=== PATIENT | male | born 1935 | race Two or more races ===

== ENCOUNTER → 2022-11-30 | Outpatient (CLI) | payer OTHER ==
[2022-11-30 09:19] LABS: Basophils # (auto) 0 10 ^3/uL (0-0.2); Eosinophils # (auto) 0.3 10 ^3/uL (0-0.8); Hemoglobin 17.8 g/dL (13.5-17.5)
[2022-11-30 09:20] LABS: Basophils % (auto) 0.4 % (0.0-2.0); Eosinophils % (auto) 3.5 % (0.0-7.0); Hematocrit 53.1 % (41.0-53.0); Lymphocytes # (auto) 2.7 10 ^3/uL (0.4-5.4); Lymphocytes % (auto) 30.9 % (10.0-50.0); Mean Corpuscular Hemoglobin 32.7 pg (28.0-32.0); Mean Corpuscular Hgb Conc. 33.4 g/dL (32.0-36.0); Mean Corpuscular Volume 97.8 fL (80.0-100.0); Monocytes # (auto) 0.7 10 ^3/uL (0-1.3); Monocytes % (auto) 8.2 % (0.0-12.0); Nucleated Red Blood Cells % 0.1 %; Red Blood Cells 5.43 10^6/uL (4.5-5.90); Red Cell Distribution Width 13.2 % (11.8-14.3); White Blood Cell 8.8 10^3/uL (4.4-10.8)
[2022-11-30 10:05] LABS: Albumin 3.7 g/dL (3.4-5.0); Potassium 4.6 mmol/L (3.5-5.1)
[2022-11-30 10:11] LABS: BUN/Creatinine Ratio 16.6; Bilirubin, Total 0.6 mg/dL (0.2-1.0); Calcium 8.8 mg/dL (8.5-10.1); Total Protein 7.8 g/dL (6.4-8.2)
== END | disposition home or self-care (01) ==
LOC: LAB 08:59
PROVIDERS: ATTEND Internal Medicine
DX: I12.9 Hypertensive chronic kidney disease with stage 1 through stage 4 chronic kidney disease, or unspecified chronic kidney disease (principal); E11.22 Type 2 diabetes mellitus with diabetic chronic kidney disease; N18.9 Chronic kidney disease, unspecified; E78.5 Hyperlipidemia, unspecified
CPT/HCPCS: 36415; 80053; 80061; 82607; 83036; 83880; 84443; 85025

== ENCOUNTER → 2022-12-06 | Outpatient (CLI) | payer OTHER | END | disposition home or self-care (01) | LOC: XYW 08:35 | PROVIDERS: ATTEND Internal Medicine | DX: I08.2 Rheumatic disorders of both aortic and tricuspid valves (principal); I25.10 Atherosclerotic heart disease of native coronary artery without angina pectoris; R07.9 Chest pain, unspecified; R06.02 Shortness of breath | CPT/HCPCS: 93306 ==

== ENCOUNTER → 2022-12-07 | Outpatient (CLI) | payer OTHER | END | disposition home or self-care (01) | LOC: EDUNIT# 08:00 → XYW 08:14 | PROVIDERS: ATTEND Internal Medicine | DX: I70.203 Unspecified atherosclerosis of native arteries of extremities, bilateral legs (principal) | CPT/HCPCS: 93925 ==

== ENCOUNTER → 2023-02-02 | Outpatient (CLI) | payer OTHER ==
[2023-02-02 13:28] LABS: Urine Bacteria NONE SEEN /hpf (None Seen); Urine Blood TRACE /uL (Negative); Urine Specific Gravity 1.016 (1.001-1.035); Urine WBC 1 /hpf (0 - 3)
[2023-02-02 14:00] LABS: Calcium 8.4 mg/dL (8.5-10.1); Potassium 4.6 mmol/L (3.5-5.1)
[2023-02-02 14:03] LABS: BUN/Creatinine Ratio 15.9 (10.0-20.0)
== END | disposition home or self-care (01) ==
LOC: LAB 12:44
PROVIDERS: ATTEND Internal Medicine
DX: E11.22 Type 2 diabetes mellitus with diabetic chronic kidney disease (principal); N18.30 Chronic kidney disease, stage 3 unspecified
CPT/HCPCS: 36415; 80048; 81001; 82043

== ENCOUNTER → 2023-04-04 | Outpatient (CLI) | payer OTHER, MEDICAID ==
[2023-04-04 09:16] LABS: Potassium 4.5 mmol/L (3.5-5.1)
[2023-04-04 09:23] LABS: BUN/Creatinine Ratio 12.9 (10.0-20.0)
== END | disposition home or self-care (01) ==
LOC: LAB 08:31
PROVIDERS: ATTEND Internal Medicine
DX: E11.9 Type 2 diabetes mellitus without complications (principal)
CPT/HCPCS: 36415; 80048; 83036

== ENCOUNTER 2023-05-29 17:19 | Inpatient (IN) | payer MEDICAID, OTHER ==
[~2023-05-29] VITALS: Ht 149.9 cm; Wt 83.4 kg
[2023-05-29 17:00] VITALS: BP 145/69; PULSE 73; RESP 16; TEMP 97.9; O2SAT 97
[2023-05-29 17:42] VITALS: PULSE 73; RESP 16; O2SAT 97
[2023-05-29] MEDS ORDERED: REMDESIVIR PER PHARMACY 0 ML IV SCH (18:45)
[2023-05-29] MEDS ORDERED: ACETAMINOPHEN 500 MG TAB PO PRN (18:45)
[2023-05-29] MEDS ORDERED: NITROGLYCERIN 0.4 MG SL TAB SL PRN (18:45)
[2023-05-29] MEDS ORDERED: ACETAMINOPHEN 325 MG TAB PO PRN (18:45)
[2023-05-29] MEDS ORDERED: DEXTROSE (50%) 50ML SYRG IV PRN (18:45)
[2023-05-29] MEDS ORDERED: MORPHINE SULFATE INJ 2 MG/ml SYRG IV PRN (18:45)
[2023-05-29 19:50] LABS: Basophils # (auto) 0 10 ^3/uL (0-0.2); Basophils % (auto) 0.2 % (0.0-2.0); Eosinophils # (auto) 0 10 ^3/uL (0-0.8); Neutrophils # (auto) 7.8 10 ^3/uL (1.6-8.6); Nucleated Red Blood Cells % 0.1 %; White Blood Cell 9.3 10^3/uL (4.4-10.8)
[2023-05-29 19:52] LABS: Hematocrit 54.8 % (41.0-53.0); Mean Corpuscular Hemoglobin 32.6 pg (28.0-32.0); Mean Corpuscular Hgb Conc. 32.9 g/dL (32.0-36.0); Mean Corpuscular Volume 99.3 fL (80.0-100.0); Monocytes # (auto) 0.5 10 ^3/uL (0-1.3); Monocytes % (auto) 5.3 % (0.0-12.0); Neutrophils % (auto) 83.5 % (37.0-80.0); Red Blood Cells 5.52 10^6/uL (4.5-5.90); Red Cell Distribution Width 14.1 % (11.8-14.3)
[2023-05-29 19:56] VITALS: BP 143/69; PULSE 73; RESP 16; TEMP 97.9; O2SAT 97
[2023-05-29 20:00] VITALS: PULSE 65
[2023-05-29 20:02] LABS: Albumin 3.3 g/dL (3.4-5.0); Calcium 7.5 mg/dL (8.5-10.1); Magnesium 2.6 mg/dL (1.6-2.6); Potassium 4.8 mmol/L (3.5-5.1)
[2023-05-29 20:05] LABS: BUN/Creatinine Ratio 17.8 (10.0-20.0); Bilirubin, Total 0.5 mg/dL (0.2-1.0); Total Protein 7.9 g/dL (6.4-8.2)
[2023-05-29 20:09] LABS: INR 1.14 (0.9-1.15); Prothrombin Time 11.9 sec (9.3-11.8)
[2023-05-29 20:14] LABS: Thyroid Stimulating Hormone 1.18 uIU/mL (0.358-3.74)
[2023-05-29 22:00] VITALS: BP 161/67; PULSE 78; RESP 19; TEMP 98.4; O2SAT 95
[2023-05-29] MEDS: InsuLIN REG 1unit/0.01ml Soln (100units/ml) SC SCH (22:00)
[2023-05-29] MEDS: BUDESONIDE (INHALATION) 180 MCG IH IN SCH (22:00)
[2023-05-29 22:25] VITALS: O2SAT 95
[2023-05-29] MEDS ORDERED: hydrALAZINE HCL 20 MG/ML VL IV ONE (22:45)
[2023-05-29] MEDS ORDERED: hydrALAZINE HCL 20 MG/ML VL ONE (23:53)
[2023-05-29] MEDS ORDERED: InsuLIN REG 1unit/0.01ml Soln (100units/ml) ONE (23:54)
[2023-05-30] VITALS (11 sets, daily range): BP systolic 130–169; BP diastolic 65–72; PULSE 64–73; RESP 14–22; TEMP 97.4–98; O2SAT 94–99
[2023-05-30] MEDS: ACCU-CHEK COMFORT CURVE STRIP VI SCH ×5 (00:30→22:38)
[2023-05-30] MEDS: SODIUM CHLORIDE 0.9% 1,000 ML IV SCH ×2 (00:35→09:51)
[2023-05-30] MEDS: AZITHROMYCIN 500MG/ 250ML 250 ML IV SCH (01:43)
[2023-05-30] MEDS: BUDESONIDE (INHALATION) 180 MCG IH IN SCH ×2 (06:15→18:41)
[2023-05-30] MEDS: ALBUTEROL SULF HFA 90MCG INH 200DOSE IN PRN ×2 (06:17→18:41)
[2023-05-30] MEDS: InsuLIN REG 1unit/0.01ml Soln (100units/ml) SC SCH ×5 (06:39→22:00)
[2023-05-30 07:13] LABS: Basophils # (auto) 0 10 ^3/uL (0-0.2); Basophils % (auto) 0.1 % (0.0-2.0); Eosinophils # (auto) 0 10 ^3/uL (0-0.8); Hematocrit 52.5 % (41.0-53.0); Hemoglobin 17.5 g/dL (13.5-17.5); Lymphocytes # (auto) 1.4 10 ^3/uL (0.4-5.4); Lymphocytes % (auto) 16.1 % (10.0-50.0); Mean Corpuscular Hgb Conc. 33.3 g/dL (32.0-36.0); Monocytes # (auto) 0.6 10 ^3/uL (0-1.3); Monocytes % (auto) 6.7 % (0.0-12.0); Neutrophils # (auto) 6.6 10 ^3/uL (1.6-8.6); Neutrophils % (auto) 77.1 % (37.0-80.0); Nucleated Red Blood Cells % 0.1 %; Red Cell Distribution Width 13.8 % (11.8-14.3); White Blood Cell 8.6 10^3/uL (4.4-10.8)
[2023-05-30 07:19] LABS: Potassium 4.9 mmol/L (3.5-5.1)
[2023-05-30 07:25] LABS: Albumin 3.2 g/dL (3.4-5.0); BUN/Creatinine Ratio 23.8 (10.0-20.0); Calcium 7.3 mg/dL (8.5-10.1)
[2023-05-30 07:27] LABS: Bilirubin, Total 0.4 mg/dL (0.2-1.0); Total Protein 7.5 g/dL (6.4-8.2)
[2023-05-30] MEDS: DexAMETHasone SOD PHOS 10MG/1ML VIAL INJ IV SCH (09:50)
[2023-05-30] MEDS: ENOXAPARIN SOD 40 MG/0.4 ML SYRINGE SC SCH (09:50)
[2023-05-30] MEDS: CHOLECALCIFEROL (VITD3) 2,000 UNIT CAP/TAB PO SCH (09:50)
[2023-05-30] MEDS: ASCORBIC ACID 1,000 MG TAB PO SCH (09:50)
[2023-05-30] MEDS: ZINC SULFATE 220mg CAP or TAB PO SCH (09:50)
[2023-05-30] MEDS ORDERED: SODIUM CHL 0.9% IV ONE (11:00)
[2023-05-30] MEDS ORDERED: REMDESIVIR IV ONE (11:00)
[2023-05-30 12:08] LABS: COVID19 ANTIGEN SOFIA FIA POSITIVE (NEGATIVE)
[2023-05-30] MEDS ORDERED: cefTRIAXone 1GM/50ML D5W 50 ML IV ONE (13:15)
[2023-05-31] VITALS (8 sets, daily range): BP systolic 132–170; BP diastolic 53–78; PULSE 57–78; RESP 16–20; TEMP 97.8–98.7; O2SAT 93–98
[2023-05-31] MEDS: AZITHROMYCIN 500MG/ 250ML 250 ML IV SCH (00:07)
[2023-05-31] MEDS: SODIUM CHLORIDE 0.9% 1,000 ML IV SCH (04:05)
[2023-05-31] MEDS: InsuLIN REG 1unit/0.01ml Soln (100units/ml) SC SCH ×4 (06:14→22:00)
[2023-05-31] MEDS: ACCU-CHEK COMFORT CURVE STRIP VI SCH ×4 (06:14→21:45)
[2023-05-31] MEDS: CHOLECALCIFEROL (VITD3) 2,000 UNIT CAP/TAB PO SCH (08:59)
[2023-05-31] MEDS: cefTRIAXone 1GM/50ML D5W 50 ML IV SCH (08:59)
[2023-05-31] MEDS: ZINC SULFATE 220mg CAP or TAB PO SCH (08:59)
[2023-05-31] MEDS: ENOXAPARIN SOD 40 MG/0.4 ML SYRINGE SC SCH (08:59)
[2023-05-31] MEDS: DexAMETHasone SOD PHOS 10MG/1ML VIAL INJ IV SCH (09:00)
[2023-05-31] MEDS: ASCORBIC ACID 1,000 MG TAB PO SCH (09:00)
[2023-05-31] MEDS ORDERED: PRED20TA2 PO (11:30)
[2023-05-31] MEDS ORDERED: LEVO750T40 PO (11:30)
[2023-05-31] MEDS: ALBUTEROL SULF HFA 90MCG INH 200DOSE IN PRN ×2 (12:07→22:13)
[2023-05-31] MEDS: BUDESONIDE (INHALATION) 180 MCG IH IN SCH ×2 (12:07→22:13)
[2023-05-31 13:06] LABS: Basophils # (auto) 0 10 ^3/uL (0-0.2); Eosinophils # (auto) 0 10 ^3/uL (0-0.8); Mean Corpuscular Hgb Conc. 32.6 g/dL (32.0-36.0); Monocytes # (auto) 0.8 10 ^3/uL (0-1.3); White Blood Cell 12.3 10^3/uL (4.4-10.8)
[2023-05-31 13:08] LABS: Basophils % (auto) 0.2 % (0.0-2.0); Hematocrit 54.6 % (41.0-53.0); Hemoglobin 17.8 g/dL (13.5-17.5); Lymphocytes % (auto) 15.8 % (10.0-50.0); Mean Corpuscular Hemoglobin 32.2 pg (28.0-32.0); Mean Corpuscular Volume 98.7 fL (80.0-100.0); Monocytes % (auto) 6.7 % (0.0-12.0); Neutrophils # (auto) 9.5 10 ^3/uL (1.6-8.6); Neutrophils % (auto) 77.3 % (37.0-80.0); Nucleated Red Blood Cells % 0.1 %; Red Blood Cells 5.54 10^6/uL (4.5-5.90); Red Cell Distribution Width 13.5 % (11.8-14.3)
[2023-05-31 13:31] LABS: Albumin 3.4 g/dL (3.4-5.0); Calcium 7.7 mg/dL (8.5-10.1); Potassium 4.9 mmol/L (3.5-5.1)
[2023-05-31 13:35] LABS: BUN/Creatinine Ratio 23.5 (10.0-20.0); Bilirubin, Total 0.2 mg/dL (0.2-1.0); Total Protein 7.5 g/dL (6.4-8.2)
[2023-05-31] MEDS ORDERED: REMDESIVIR 100mg 100 MG in SODIUM CHL 0.9% 230 ML IV SCH (15:00)
[2023-05-31 16:56] LABS: Base Excess -5.6 mmol/L (-2.0-2.0)
[2023-05-31] MEDS ORDERED: cloNIDine HCL 0.1 MG TAB PO ONE (21:15)
[2023-06-01] VITALS (13 sets, daily range): BP systolic 1–180; BP diastolic 61–132; PULSE 56–73; RESP 18–20; TEMP 97.3–98.2; O2SAT 93–96
[2023-06-01] MEDS: SODIUM CHLORIDE 0.9% 1,000 ML IV SCH ×2 (00:36→18:59)
[2023-06-01] MEDS: AZITHROMYCIN 500MG/ 250ML 250 ML IV SCH (01:36)
[2023-06-01] MEDS: InsuLIN REG 1unit/0.01ml Soln (100units/ml) SC SCH ×4 (06:14→21:53)
[2023-06-01] MEDS: ACCU-CHEK COMFORT CURVE STRIP VI SCH ×4 (06:14→21:52)
[2023-06-01] MEDS: BUDESONIDE (INHALATION) 180 MCG IH IN SCH ×2 (10:00→19:22)
[2023-06-01] MEDS: ENOXAPARIN SOD 40 MG/0.4 ML SYRINGE SC SCH ×2 (10:00→11:56)
[2023-06-01 10:28] LABS: Potassium 4.1 mmol/L (3.5-5.1)
[2023-06-01 10:34] LABS: Albumin 3.2 g/dL (3.4-5.0); BUN/Creatinine Ratio 22.4 (10.0-20.0); Bilirubin, Total 0.4 mg/dL (0.2-1.0); Calcium 7.5 mg/dL (8.5-10.1)
[2023-06-01] MEDS: CHOLECALCIFEROL (VITD3) 2,000 UNIT CAP/TAB PO SCH (11:55)
[2023-06-01] MEDS: ASCORBIC ACID 1,000 MG TAB PO SCH (11:55)
[2023-06-01] MEDS: cefTRIAXone 1GM/50ML D5W 50 ML IV SCH (11:55)
[2023-06-01] MEDS: DexAMETHasone SOD PHOS 10MG/1ML VIAL INJ IV SCH (11:56)
[2023-06-01] MEDS: ZINC SULFATE 220mg CAP or TAB PO SCH (11:56)
[2023-06-01] MEDS ORDERED: hydrALAZINE HCL 20 MG/ML VL IV ONE (16:45)
[2023-06-01] MEDS ORDERED: hydrALAZINE HCL 10 MG TAB PO ONE ×2 (17:00→18:30)
[2023-06-01] MEDS ORDERED: cloNIDine HCL 0.1 MG TAB PO PRN (19:15)
[2023-06-02] VITALS (7 sets, daily range): BP systolic 140–171; BP diastolic 62–78; PULSE 62–73; RESP 18; TEMP 97.7–97.9; O2SAT 91–95
[2023-06-02] MEDS: AZITHROMYCIN 500MG/ 250ML 250 ML IV SCH (00:46)
[2023-06-02] MEDS: SODIUM CHLORIDE 0.9% 1,000 ML IV SCH (06:05)
[2023-06-02] MEDS: InsuLIN REG 1unit/0.01ml Soln (100units/ml) SC SCH ×2 (06:23→12:31)
[2023-06-02] MEDS: ACCU-CHEK COMFORT CURVE STRIP VI SCH ×2 (06:23→11:30)
[2023-06-02 06:42] LABS: Basophils # (auto) 0 10 ^3/uL (0-0.2); Basophils % (auto) 0.1 % (0.0-2.0); Eosinophils # (auto) 0 10 ^3/uL (0-0.8); Hematocrit 50.5 % (41.0-53.0); Hemoglobin 17.1 g/dL (13.5-17.5); Lymphocytes # (auto) 2.1 10 ^3/uL (0.4-5.4); Lymphocytes % (auto) 21.7 % (10.0-50.0); Mean Corpuscular Hgb Conc. 33.8 g/dL (32.0-36.0); Mean Corpuscular Volume 97.4 fL (80.0-100.0); Monocytes # (auto) 0.8 10 ^3/uL (0-1.3); Monocytes % (auto) 8.9 % (0.0-12.0); Neutrophils # (auto) 6.6 10 ^3/uL (1.6-8.6); Neutrophils % (auto) 69.3 % (37.0-80.0); Nucleated Red Blood Cells % 0.3 %; Red Blood Cells 5.18 10^6/uL (4.5-5.90); Red Cell Distribution Width 13.4 % (11.8-14.3); White Blood Cell 9.5 10^3/uL (4.4-10.8)
[2023-06-02 07:00] LABS: Calcium 7.4 mg/dL (8.5-10.1); Potassium 4.7 mmol/L (3.5-5.1)
[2023-06-02 07:03] LABS: BUN/Creatinine Ratio 20.6 (10.0-20.0); Bilirubin, Total 0.4 mg/dL (0.2-1.0); Total Protein 6.8 g/dL (6.4-8.2)
[2023-06-02] MEDS: cefTRIAXone 1GM/50ML D5W 50 ML IV SCH (08:32)
[2023-06-02] MEDS: DexAMETHasone SOD PHOS 10MG/1ML VIAL INJ IV SCH (08:33)
[2023-06-02] MEDS: CHOLECALCIFEROL (VITD3) 2,000 UNIT CAP/TAB PO SCH (08:33)
[2023-06-02] MEDS: ASCORBIC ACID 1,000 MG TAB PO SCH (08:33)
[2023-06-02] MEDS: ZINC SULFATE 220mg CAP or TAB PO SCH (08:33)
[2023-06-02] MEDS: ENOXAPARIN SOD 40 MG/0.4 ML SYRINGE SC SCH (08:34)
[2023-06-02] MEDS: LISINOPRIL 5 MG TAB PO SCH ×2 (08:34→10:40)
[2023-06-02] MEDS ORDERED: LISI-275 PO (10:17)
[2023-06-02] MEDS: ALBUTEROL SULF HFA 90MCG INH 200DOSE IN PRN (10:54)
[2023-06-02] MEDS: BUDESONIDE (INHALATION) 180 MCG IH IN SCH (10:54)
== END 2023-06-02 13:30 | disposition home or self-care (01) | DRG 177 ==
LOC: TELE-EAST 17:19
PROVIDERS: ADMIT Internal Medicine Pulmonary Disease; ATTEND Internal Medicine
PROC: XW033E5 Introduction of Remdesivir Anti-infective into Peripheral Vein, Percutaneous Approach, New Technology Group 5 (ICD-10-PCS; principal; 2023-05-30)
DX: U07.1 COVID-19 (principal); J12.82 Pneumonia due to coronavirus disease 2019; E44.1 Mild protein-calorie malnutrition; J44.1 Chronic obstructive pulmonary disease with (acute) exacerbation; J44.0 Chronic obstructive pulmonary disease with (acute) lower respiratory infection; E11.9 Type 2 diabetes mellitus without complications; I16.0 Hypertensive urgency; I10 Essential (primary) hypertension; Z87.891 Personal history of nicotine dependence; Z90.49 Acquired absence of other specified parts of digestive tract; Z68.37 Body mass index [BMI] 37.0-37.9, adult
CPT/HCPCS: 36415; 36600; 71045; 80053; 82306; 82728; 82805; 82962; 83036; 83605; 83615; 83735; 83880; 84443; 85025; 85379; 85610; 86141; 87040; 87426; 93005; 93970; 94640; G0378; J0696; J1100; J1815

== ENCOUNTER → 2024-04-11 | Outpatient (CLI) | payer OTHER ==
[~2024-04-11] MED LIST: LEVO750T40 PO; LISI-275 PO; PRED20TA2 PO
[2024-04-11 08:31] LABS: Urine Bacteria None Seen /hpf (None Seen)
[2024-04-11 08:37] LABS: Basophils # (auto) 0 10 ^3/uL (0-0.2); Basophils % (auto) 0.2 % (0.0-2.0); Eosinophils # (auto) 0.3 10 ^3/uL (0-0.8); Eosinophils % (auto) 3.4 % (0.0-7.0); Hematocrit 52.7 % (41.0-53.0); Hemoglobin 17.6 g/dL (13.5-17.5); Lymphocytes # (auto) 3.3 10 ^3/uL (0.4-5.4); Lymphocytes % (auto) 33.3 % (10.0-50.0); Mean Corpuscular Hemoglobin 31.6 pg (28.0-32.0); Mean Corpuscular Hgb Conc. 33.4 g/dL (32.0-36.0); Mean Corpuscular Volume 94.7 fL (80.0-100.0); Monocytes # (auto) 0.8 10 ^3/uL (0-1.3); Monocytes % (auto) 7.9 % (0.0-12.0); Neutrophils # (auto) 5.4 10 ^3/uL (1.6-8.6); Neutrophils % (auto) 55.2 % (37.0-80.0); Red Blood Cells 5.56 10^6/uL (4.5-5.90); Red Cell Distribution Width 15.2 % (11.8-14.3); White Blood Cell 9.8 10^3/uL (4.4-10.8)
[2024-04-11 09:10] LABS: Alanine Aminotransferase 14 U/L (7-40); Alkaline Phosphatase 81 U/L (46-116); Anion Gap 7 (5-15); Aspartate Aminotransferase 15 U/L (13-40); BUN/Creatinine Ratio 10.5 (10.0-20.0); Bilirubin, Total 0.4 mg/dL (0.2-1.0); Blood Urea Nitrogen 16 mg/dL (9-23); Calcium 8.6 mg/dL (8.5-10.1); Carbon Dioxide 22 mmol/L (20-30); Chloride 110 mmol/L (98-107); Cholesterol 115 mg/dL (< 200); Glucose 111 mg/dL (74-106); HDL Cholesterol 37 mg/dL (40-59); LDL Cholesterol 67 mg/dL (< 100); Sodium 139 mmol/L (136-145); Total Protein 6.9 g/dL (5.7-8.2); Triglycerides 146 mg/dL (< 150)
[2024-04-11 09:20] LABS: Urine Blood 2+ /uL (Negative); Urine Clarity Clear (Clear); Urine Color Light-Yellow (Yellow); Urine Protein, UAD 1+ (Negative); Urine Specific Gravity 1.013 (1.001-1.035); Urine Urobilinogen Normal (Negative); Urine WBC 2 /hpf (0 - 3); Urine pH 5.5 (5.0-9.0)
[2024-04-11 10:25] LABS: Creatinine, Urine 91.67 mg/dL (30.0-125.0)
== END | disposition home or self-care (01) ==
LOC: LAB 08:22
PROVIDERS: ATTEND Internal Medicine
DX: Z00.00 Encounter for general adult medical examination without abnormal findings (principal); E11.22 Type 2 diabetes mellitus with diabetic chronic kidney disease; N18.30 Chronic kidney disease, stage 3 unspecified
CPT/HCPCS: 36415; 80053; 80061; 81001; 82043; 82570; 85025

== ENCOUNTER → 2024-05-24 | Outpatient (CLI) | payer OTHER | END | disposition home or self-care (01) | LOC: PF 14:39 | PROVIDERS: ATTEND Internal Medicine | DX: J44.9 Chronic obstructive pulmonary disease, unspecified (principal) | CPT/HCPCS: 36600; 82805 ==

== ENCOUNTER → 2024-06-08 | Outpatient (CLI) | payer OTHER | END | disposition home or self-care (01) | LOC: XYW 12:21 | PROVIDERS: ATTEND Internal Medicine | DX: I51.89 Other ill-defined heart diseases (principal); I50.9 Heart failure, unspecified; I51.7 Cardiomegaly | CPT/HCPCS: 93306 ==

== ENCOUNTER 2024-07-02 11:20 | Emergency (ER) | payer OTHER, MEDICAID ==
[~2024-07-02] VITALS: Ht 165.1 cm; Wt 79.8 kg
[2024-07-02 11:49] VITALS: BP 112/73; PULSE 70; RESP 18; O2SAT 91
[2024-07-02 13:51] LABS: Basophils # (auto) 0 10 ^3/uL (0-0.2); Basophils % (auto) 0.4 % (0.0-2.0); Eosinophils # (auto) 0.2 10 ^3/uL (0-0.8); Eosinophils % (auto) 2.4 % (0.0-7.0); Hematocrit 55.6 % (41.0-53.0); Hemoglobin 18.8 g/dL (13.5-17.5); Lymphocytes # (auto) 2.8 10 ^3/uL (0.4-5.4); Lymphocytes % (auto) 31.5 % (10.0-50.0); Mean Corpuscular Hemoglobin 33.1 pg (28.0-32.0); Mean Corpuscular Hgb Conc. 33.9 g/dL (32.0-36.0); Mean Corpuscular Volume 97.6 fL (80.0-100.0); Monocytes # (auto) 0.7 10 ^3/uL (0-1.3); Monocytes % (auto) 8.3 % (0.0-12.0); Neutrophils # (auto) 5.1 10 ^3/uL (1.6-8.6); Neutrophils % (auto) 57.4 % (37.0-80.0); Nucleated Red Blood Cells % 0.3 %; Platelet Count (auto) 198 10^3/uL (140-450); Red Cell Distribution Width 15.4 % (11.8-14.3); White Blood Cell 8.9 10^3/uL (4.4-10.8)
[2024-07-02 13:59] LABS: Chloride 111 mmol/L (98-107); Potassium 5.2 mmol/L (3.5-5.1); Sodium 140 mmol/L (136-145)
[2024-07-02 14:00] LABS: Anion Gap 5 (5-15); Carbon Dioxide 24 mmol/L (20-30)
[2024-07-02 14:05] LABS: BUN/Creatinine Ratio 12.8 (10.0-20.0); Blood Urea Nitrogen 25 mg/dL (9-23); Glucose 122 mg/dL (74-106)
== END 2024-07-02 17:17 | disposition left against medical advice (07) ==
LOC: ER 11:20
DX: E87.8 Other disorders of electrolyte and fluid balance, not elsewhere classified (principal); E11.9 Type 2 diabetes mellitus without complications; I10 Essential (primary) hypertension; K21.9 Gastro-esophageal reflux disease without esophagitis; Z90.49 Acquired absence of other specified parts of digestive tract; Z98.890 Other specified postprocedural states; Z79.899 Other long term (current) drug therapy
CPT/HCPCS: 36415; 80048; 85025

== ENCOUNTER → 2024-07-02 | Outpatient (CLI) | payer OTHER ==
[2024-07-02 09:37] LABS: Anion Gap 9 (5-15); Calcium 9.2 mg/dL (8.7-10.4); Carbon Dioxide 25 mmol/L (20-30); Chloride 110 mmol/L (98-107); Sodium 144 mmol/L (136-145)
[2024-07-02 09:43] LABS: BUN/Creatinine Ratio 13.9 (10.0-20.0); Blood Urea Nitrogen 28 mg/dL (9-23); Glucose 122 mg/dL (74-106)
[2024-07-02 09:55] LABS: Potassium 5.6 mmol/L (3.5-5.1)
== END | disposition home or self-care (01) ==
LOC: LAB 08:52
PROVIDERS: ATTEND Internal Medicine
DX: J44.9 Chronic obstructive pulmonary disease, unspecified (principal); E11.22 Type 2 diabetes mellitus with diabetic chronic kidney disease
CPT/HCPCS: 36415; 80048

== ENCOUNTER → 2024-08-03 | Outpatient (CLI) | payer OTHER, MEDICAID ==
[2024-08-03 10:21] LABS: Anion Gap 6 (5-15); Carbon Dioxide 25 mmol/L (20-31); Chloride 108 mmol/L (98-107); Potassium 5.2 mmol/L (3.5-5.1); Sodium 139 mmol/L (136-145)
[2024-08-03 10:22] LABS: Calcium 9.1 mg/dL (8.7-10.4)
[2024-08-03 10:27] LABS: BUN/Creatinine Ratio 17.9 (10.0-20.0); Blood Urea Nitrogen 34 mg/dL (9-23); Glucose 119 mg/dL (74-106)
== END | disposition home or self-care (01) ==
LOC: LAB 08:34
PROVIDERS: ATTEND Internal Medicine
DX: E11.22 Type 2 diabetes mellitus with diabetic chronic kidney disease (principal); N18.30 Chronic kidney disease, stage 3 unspecified
CPT/HCPCS: 36415; 80048

== ENCOUNTER → 2024-08-29 | Outpatient (CLI) | payer OTHER, MEDICAID ==
[2024-08-29 09:33] LABS: Chloride 109 mmol/L (98-107); Sodium 146 mmol/L (136-145)
[2024-08-29 09:34] LABS: Anion Gap 9 (5-15); Carbon Dioxide 28 mmol/L (20-31)
[2024-08-29 09:35] LABS: Calcium 9.6 mg/dL (8.7-10.4)
[2024-08-29 09:39] LABS: BUN/Creatinine Ratio 12.7 (10.0-20.0); Blood Urea Nitrogen 25 mg/dL (9-23); Glucose 110 mg/dL (74-106)
== END | disposition home or self-care (01) ==
LOC: LAB 08:38
PROVIDERS: ATTEND Internal Medicine
DX: J44.9 Chronic obstructive pulmonary disease, unspecified (principal); I50.9 Heart failure, unspecified
CPT/HCPCS: 36415; 80048; 82306; 83880

== ENCOUNTER 2025-01-23 18:42 | Inpatient (IN) | payer OTHER, MEDICAID ==
[~2025-01-23] VITALS: Ht 165.1 cm; Wt 77.3 kg
[2025-01-24 21:55] VITALS: BP 140/60; PULSE 75; RESP 18; TEMP 98.7
[2025-01-24 22:10] VITALS: BP 140/60; PULSE 75; RESP 18; TEMP 98.7; O2SAT 97
[2025-01-25] VITALS (12 sets, daily range): BP systolic 119–141; BP diastolic 48–67; PULSE 70–77; RESP 16–18; TEMP 97.3–98.6; O2SAT 90–98
[2025-01-25] MEDS ORDERED: NIFE1TAB36 (01:19)
[2025-01-25] MEDS ORDERED: LINA5TAB PO (01:19)
[2025-01-25] MEDS ORDERED: GLIP5TAB21 PO (01:19)
[2025-01-25] MEDS ORDERED: ALBU108A5 PO (01:19)
[2025-01-25] MEDS ORDERED: FLUT1AER17 INH (01:19)
[2025-01-25] MEDS ORDERED: EMPA1TAB3 PO (01:19)
[2025-01-25] MEDS ORDERED: FURO20TA4 PO (01:19)
--- NOTE | 2025-01-25 01:36 | DVHHP2 ---
History of Present Illness Reason for Visit: Shortness of breath History of Present Illness 89-year-old male being transferred from [facility] for continuity of care and disposition. Patient presented to outside facility with complaints of shortness for breath that has been ongoing for the past three days. Patient's workup revealed bilateral lung pneumonia, influenza and exacerbation of congestive heart failure. Patient was given antibiotics and lightly diuresed. Patient is received in stable condition denies shortness for breath or chest pain at the moment. Past Medical History Diabetes mellitus, hypertension, congestive heart failure, dyslipidemia Past Surgical History Cholecystectomy Family History Noncontributory Smoke: No ALCOHOL: none Drugs: None Review of Systems Review of Systems Review of systems are currently negative otherwise addressed in HPI. Allergies: Coded Allergies: NO KNOWN ALLERGIES (Unverified , 03/01/23) Medications Current Medications Medications Dose Ordered Sig/Reggie Route Start Time Stop Time Status Last Admin Dose Admin Ceftriaxone Sodium 50 ml @ 100 mls/hr DAILY@09 IV 01/25/25 09:00 Azithromycin 250 ml @ 125 mls/hr DAILY IV 01/25/25 10:00 Empaglifozin 10 mg DAILY PO 01/25/25 10:00 UNV Furosemide 20 mg DAILY PO 01/25/25 10:00 Nifedipine 30 mg DAILY PO 01/25/25 10:00 Atorvastatin Calcium 20 mg HS PO 01/25/25 22:00 Albuterol 2.5 mg Q6HPRN PRN NEB 01/25/25 00:30 Enoxaparin Sodium 40 mg DAILY SC 01/25/25 10:00 UNV Oseltamivir Phosphate 75 mg Q12HR PO 01/25/25 10:00 01/30/25 09:59 UNV Exam Vital Signs Vital Signs Date Time Temp Pulse Resp B/P (MAP) Pulse Ox O2 Delivery O2 Flow Rate FiO2 01/25/25 01:00 97.3 77 18 125/53 (77) 97 97.3 Exam Gen: 89-year-old male in mild distress Skin: Warm, dry, normal color and texture, no rash. HEENT: Normocephalic atraumatic, mucous membranes moist and pink. Neck: Cervical and supraclavicular nodes normal without enlargement, trachea is midline, thyroid gland is normal without masses. Pulmonary: Clear to auscultation and percussion bilaterally. Cardiac: Regular rate and rhythm. No murmur Abdomen: Soft, nontender, nondistended, bowel sounds present all 4 quadrants, no guarding, no rigidity, no organomegaly. Extremities: No cyanosis, clubbing, no edema Neuro: Cranial nerves II through XII grossly intact, normal affect and speech, no focal motor deficits. Labs/Xrays ORDERING PHYSICIAN: ERNESTO PIERCE MD PROCEDURE(s): ECIDC - ECHO 2D MODE CARDIAC DOP REASON: I50.9 ORDER NUMBER(s): [id number], ACCESSION NUMBER(s): [id number] APPROVED REPORT EXAM: Two-dimensional and M-mode echocardiogram with Doppler and color Doppler. INDICATION Heart Failure DIMENSIONS LVDd (3.8-5.7cm) LA (2D) 3.7 (1.9-4.0cm) Aortic Root 3.4 (2.0- 3.7cm) LVDs (2.5-4.0cm) LA (MM) (1.9-4.0cm) Aortic Cusp Exc 1.6 (1.5- 2.0cm) EF (%) 56.0 (55-70%) Rt. Atrium (1.9-4.0cm) Asc. Aorta cm Mitral Valve Mitral Mitral Stenosis E wave 0.48m/s MV Mean GR. mmHg A wave 0.94m/s MV Peak GR. mmHg E/A ratio 0.5 2D MVA cm2 DECEL Time 296ms PRESS 1/2 Time ms Aortic Valve Aortic Valve Aortic Stenosis V1 1.15m/s AO Mean GR. 4mmHg V2 1.16m/s AO Peak GR. 5mmHg LVOT Diameter 1.6 (1.8-2.4cm) Doppler MARLYN 1.99cm2 Pulmonic Valve V2 1.07m/s Tricuspid Valve TR Velocity 2.12m/s RVSP 21mmHg Other Information Conclusion Mild concentric left ventricular hypertrophy. Normal left ventricular size and dimension. Normal left ventricular systolic function estimated ejection 55%. There is a grade 1 diastolic dysfunction. Normal right ventricular size and. Normal left systolic function. Normal biatrial size and dimension. Normal aortic valve structure and function. Normal mitral valve structure and function. Normal tricuspid valve structure and function. The pulmonary valve is grossly normal. No pericardial effusion. SIGNED BY: HOLGER SHULTZ MD SIGNED DATE/TIME: 06/09/24 1602 Labs Test 01/25/25 01:05 Range/Units Assessment/Plan Assessment/Plan Assessment Multifocal pneumonia Influenza Acute on chronic congestive heart failure Acute kidney injury Plan Admit the patient to Med surge to the hospitalist Rocephin/azithromycin Resume home medications Continue treatment per orders. Plan discussed with: Patient My Orders Orders - CLAUDE SPEAR Procedure Category Date Status Time Ceftriaxone 1gm/50ml PHA 01/25/25 In Process D5w (Rocephin) 09:00 Azithromycin 500mg/ PHA 01/25/25 In Process 250ml (Zithromax 50 10:00 Empagliflozin PHA 01/25/25 Logged (Jardiance) 10:00 Furosemide Tablet PHA 01/25/25 In Process (Lasix Tablet) 10:00 Nifedipine Er PHA 01/25/25 In Process (Procardia Xl 10:00 Atorvastatin (Lipitor) PHA 01/25/25 In Process 22:00 Chest Xray 1 View XY 01/25/25 Logged 00:25 Complete Blood Count LAB 01/25/25 In Process 00:25 Comprehensive LAB 01/25/25 In Process Metabolic Panel 00:25 Troponin-I Hs LAB 01/25/25 In Process 00:25 B-Type Natriuretic LAB 01/25/25 In Process Peptide 00:25 Albuterol Medneb PHA 01/25/25 In Process (Ventolin Medneb) 00:30 Admit ADMIT 01/25/25 Transmitted 00:25 Enoxaparin Sodium PHA 01/25/25 Logged (Lovenox) 10:00 Cardiac DIET 01/25/25 Transmitted Diet-2gna,Lofat,Lochol Breakfast Condition: Stable MT 01/25/25 In Process 00:25 Bedrest With Bathroom MT 01/25/25 In Process Privileg 00:25 Oseltamivir 75mg PHA 01/25/25 Logged Capsule (Tamiflu 75mg 10:00 Mrsa Screen CHRISTINA 01/25/25 Logged 00:46 Date of Service: Jan 25, 2025 Billing Provider: CLAUDE SPEAR Common Visit Codes: [id number] INP/OBS CARE (HIGH) CLAUDE SPEAR Jan 25, 2025 01:36
[2025-01-25 01:39] LABS: Basophils # (auto) 0 10 ^3/uL (0-0.2); Basophils % (auto) 0.1 % (0.0-2.0); Eosinophils # (auto) 0 10 ^3/uL (0-0.8); Hemoglobin 17.2 g/dL (13.5-17.5); Lymphocytes # (auto) 1.4 10 ^3/uL (0.4-5.4); Lymphocytes % (auto) 6.1 % (10.0-50.0); Mean Corpuscular Hemoglobin 32.9 pg (28.0-32.0); Mean Corpuscular Hgb Conc. 33.7 g/dL (32.0-36.0); Mean Corpuscular Volume 97.9 fL (80.0-100.0); Monocytes # (auto) 1.3 10 ^3/uL (0-1.3); Monocytes % (auto) 5.9 % (0.0-12.0); Neutrophils # (auto) 19.5 10 ^3/uL (1.6-8.6); Neutrophils % (auto) 87.9 % (37.0-80.0); Platelet Count (auto) 304 10^3/uL (140-450); Red Blood Cells 5.21 10^6/uL (4.5-5.90); Red Cell Distribution Width 13.7 % (11.8-14.3); White Blood Cell 22.1 10^3/uL (4.4-10.8)
[2025-01-25 01:48] LABS: Alanine Aminotransferase 17 U/L (7-40); Albumin 3.8 g/dL (3.2-4.8); Alkaline Phosphatase 70 U/L (46-116); Anion Gap 9 (5-15); Aspartate Aminotransferase 17 U/L (13-40); BUN/Creatinine Ratio 21.7 (10.0-20.0); Blood Urea Nitrogen 39 mg/dL (9-23); Calcium 9.1 mg/dL (8.7-10.4); Carbon Dioxide 24 mmol/L (20-31); Chloride 104 mmol/L (98-107); Glucose 88 mg/dL (74-106); Potassium 5.1 mmol/L (3.5-5.1); Sodium 137 mmol/L (136-145); Total Protein 6.7 g/dL (5.7-8.2)
[2025-01-25 01:55] LABS: Bilirubin, Total 0.3 mg/dL (0.2-1.0)
[2025-01-25] MEDS: ALBUTEROL SULF 2.5 MG/0.5ML(0.5%) NEB SOLN NEB PRN (02:28)
[2025-01-25] MEDS ORDERED: ONDANSETRON HCL 4 MG/2 ML VIAL IV PRN (03:30)
[2025-01-25] MEDS: ACETAMINOPHEN 325 MG TAB PO PRN (03:43)
--- NOTE | 2025-01-25 08:55 | DVH ---
EXAM: XY CHEST XRAY 1 VIEW Indication: Pain; PNA Technique: Single frontal view of the chest was obtained Comparison: XY CHEST PORTABLE on DOS: 06/02/23, XY CHEST PORTABLE on DOS: 05/30/23 FINDINGS: Lines and Tubes: None Lungs: Diffuse interstitial opacities Pleura: No effusion. No pneumothorax. Cardiomediastinal contours: Unremarkable Bones: No acute osseous abnormality. IMPRESSION: Diffuse interstitial opacities suggestive of atypical infection or pulmonary edema.
[2025-01-25] MEDS: HYDROcodone-ACET 5/325MG TAB PO PRN (10:16)
[2025-01-25] MEDS: OSELTAMIVIR 30 MG CAP PO SCH (10:17)
[2025-01-25] MEDS: FUROSEMIDE 20 MG TAB PO SCH (10:17)
[2025-01-25] MEDS: EMPAGLIFLOZIN 10 MG TAB PO SCH (10:17)
[2025-01-25] MEDS: NIFEdipine ER 30 MG TAB PO SCH (10:17)
[2025-01-25] MEDS: cefTRIAXone 1GM/50ML D5W 50 ML IV SCH (10:18)
[2025-01-25] MEDS: ENOXAPARIN SOD 40 MG/0.4 ML SYRINGE SC SCH (10:18)
[2025-01-25] MEDS: OSELTAMIVIR 75 MG CAP PO ONE (12:18)
--- NOTE | 2025-01-25 12:42 | DVHSR ---
APPROVED REPORT EXAM: Two-dimensional and M-mode echocardiogram with Doppler and color Doppler. Blood Pressure: 133/53 mmHg INDICATION EF RISK FACTORS Height: 5'5", Weight: 173 DIMENSIONS LVDd4.3 (3.8-5.7cm)LA (2D)3.4 (1.9-4.0cm)Aortic Root3.2 (2.0-3.7cm) LVDs2.3 (2.5-4.0cm)LA (MM) (1.9-4.0cm)Aortic Cusp Exc1.8 (1.5-2.0cm) EF (%) 77.0 (55-70%)Rt. Atrium4.5 (1.9-4.0cm)Asc. Aorta2.6 cm IVSd1.4 (0.7-1.1cm)RV (D)3.5 (1.8-2.4cm) PWd1.2 (0.7-1.1cm) Mitral Valve MitralMitral Stenosis E wave0.47m/sMV Mean GR.mmHg A wave0.87m/sMV Peak GR.mmHg E/A ratio0.52D MVAcm2 DECEL [id number] 1/2 Timems Aortic Valve Aortic ValveAortic Stenosis V11.05m/Khai Mean GR.4mmHg V21.18m/Khai Peak GR.6mmHg LVOT Diameter1.9 (1.8-2.4cm)Doppler AVA2.52cm2 Pulmonic Valve V20.98m/s Other Information Quality : Technically LimitedRhythm : Technically limited study due to body habitus. Conclusion lvef 45% by visual estiamte apex is hypokinetic moderate concentric LVH normal RV function biatrial enlargement mild no severe valve abnormalities noted limited study, poor image quality
[2025-01-25] MEDS: AZITHROMYCIN 500MG/ 250ML 250 ML IV SCH (12:49)
--- NOTE | 2025-01-25 14:37 | DVHPNRES ---
Progress Note Date Seen: Jan 25, 2025 Resident Creating Document: CAITLYN CHAPARRO RESIDENT Has the PT tested + for MRSA If YES, has PT been informed?: No Medical Necessity Reason Pt with a Central, PICC or Fol: No Subjective Review of Systems This is a 89-year-old male with past medical history of hypertension, CHF, type 2 diabetes mellitus, dyslipidemia who presented to the ED transferred from [facility] due to shortness of breath for the past three days before coming to the hospital. Upon arrival to the ED, patient was desaturating requiring oxygen through nasal cannula currently at 3 L of oxygen. [place] [address], creatinine 1.80, BUN 39 and troponins were negative. BNP was slightly elevated at 212. Initial chest x-ray showed bilateral patchy infiltrates on bilateral lungs likely due to atypical pneumonia. We ordered COVID Lisette antigen test and influenza a and B. patient was started on IV azithromycin and ceftriaxone and patient was admitted for further assessment and management of possible atypical pneumonia. Patient seen and examined at bedside. Patient is currently having mild shortness of breath currently requiring 3 L of oxygen through nasal cannula. Patient denies chest pain but does reports mild shortness of breath. Patient upon my examination has bilateral crackles on both lung bases but there is no peripheral edema. We will continue IV azithromycin and ceftriaxone as well as oseltamivir on renal dose for possible influenza. We will start IV fluids at 75 cc/hour due to HILLARY. Patient denies chest pain, fever/chills or any other associated symptoms at this time. ROS Constitutional: Denies weight loss, fever and chills. HEENT: Denies changes in vision and hearing. Respiratory: Reports mild shortness of breath and mild cough. Cardiovascular: Denies chest discomfort or palpitations GI: Denies abdominal pain, nausea, vomiting and diarrhea. : Denies dysuria and urinary frequency. Musculoskeletal: Denies myalgias and joint pain Skin: Denies rash and pruritus. Neurological: Denies dizziness, headache, vision or hearing problems Objective vital signs Vital Sign Date Time Temp Pulse Resp B/P (MAP) Pulse Ox O2 Delivery O2 Flow Rate FiO2 01/25/25 12:33 97.4 70 17 120/53 (75) 94 97.4 01/25/25 08:00 Nasal Cannula* 4 36 Total Intake and Output 01/24/25 01/24/25 01/25/25 15:00 23:00 07:00 Intake Total 0 ml Balance 0 ml medications Current Medications Medications Dose Ordered Sig/Reggie Route Start Time Stop Time Status Last Admin Dose Admin Ceftriaxone Sodium 50 ml @ 100 mls/hr DAILY@09 IV 01/25/25 09:00 01/25/25 10:18 100 MLS/HR Azithromycin 250 ml @ 125 mls/hr DAILY IV 01/25/25 10:00 01/25/25 12:49 125 MLS/HR Empaglifozin 10 mg DAILY PO 01/25/25 10:00 01/25/25 10:17 10 MG Furosemide 20 mg DAILY PO 01/25/25 10:00 01/25/25 10:17 20 MG Nifedipine 30 mg DAILY PO 01/25/25 10:00 01/25/25 10:17 30 MG Atorvastatin Calcium 20 mg HS PO 01/25/25 22:00 Albuterol 2.5 mg Q6HPRN PRN NEB 01/25/25 00:30 01/25/25 02:28 2.5 MG Enoxaparin Sodium 40 mg DAILY SC 01/25/25 10:00 01/25/25 10:18 40 MG Acetaminophen/ Hydrocodone Bitart 1 tab Q4HP PRN PO 01/25/25 03:30 01/25/25 10:16 1 TAB Ondansetron HCl 4 mg Q4HP PRN IV 01/25/25 03:30 Acetaminophen 650 mg Q6HP PRN PO 01/25/25 03:30 01/25/25 03:43 650 MG Oseltamivir Phosphate 30 mg BID PO 01/25/25 10:00 01/30/25 09:59 01/25/25 10:17 30 MG Examination Physical Examination General: Patient alert and oriented in person, place and time. Patient following commands. HEENT: Normocephalic, atraumatic, moist mucous membranes Respiratory/pulmonary: There are crackles on bilateral lung lafleur, no wheezes at this time. The patient is requiring 3 L of oxygen through nasal cannula Cardiovascular: Normal heart sounds S1 and S2 with no associated murmurs Abdomen: Abdomen nondistended, there is no pain to palpation in any of the abdominal quadrants, no palpable masses. Extremities: There is no peripheral edema present at the lower extremities. Peripheral Pulses: 3+ Radial (R). 3+ Radial (L). 3+ Dorsalis pedis (R). 3+ Dorsalis pedis(L) Skin: No rashes or pruritus, there is no sacral edema present at this time. 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 -monitor blood glucose closely Dyslipidemia -start atorvastatin 20 mg daily Goals of care discussed with the patient at bedside for > 25min, Plan discussed with Dr. Morgan Plan discussed with: Patient My Orders My Orders Orders - CAITLYN CHAPARRO Procedure Category Date Status Time Respiratory Culture CHRISTINA 01/25/25 Logged W/ Gs 09:32 Covid19 Antigen Patricia LAB 01/25/25 Logged Rapid Influenza A&B LAB 01/25/25 Logged 09:33 Date of Service: Jan 25, 2025 Billing Provider: SWETHA MORGAN MD Common Visit Codes: [id number] INP/OBS CARE(HIGH) CAITLYN CHAPARRO RESIDENT Jan 25, 2025 14:37 SWETHA MORGAN MD Jan 25, 2025 19:41
[2025-01-25] MEDS: SODIUM CHLORIDE 0.9% 1,000 ML IV SCH (14:38)
[2025-01-25] MEDS: ATORVASTATIN 20 MG TAB PO SCH (21:24)
[2025-01-26] VITALS (9 sets, daily range): BP systolic 100–128; BP diastolic 46–55; PULSE 68–97; RESP 17–20; TEMP 97.4–98.4; O2SAT 90–98
[2025-01-26 05:44] LABS: COVID19 ANTIGEN SOFIA FIA NEGATIVE (NEGATIVE); Rapid Influenza A Negative (Negative); Rapid Influenza B Negative (Negative)
[2025-01-26 06:13] LABS: Basophils # (auto) 0 10 ^3/uL (0-0.2); Basophils % (auto) 0.2 % (0.0-2.0); Chloride 103 mmol/L (98-107); Eosinophils # (auto) 0.1 10 ^3/uL (0-0.8); Eosinophils % (auto) 0.8 % (0.0-7.0); Hematocrit 51.7 % (41.0-53.0); Hemoglobin 17.1 g/dL (13.5-17.5); Lymphocytes # (auto) 1.7 10 ^3/uL (0.4-5.4); Lymphocytes % (auto) 11.9 % (10.0-50.0); Mean Corpuscular Hemoglobin 32.6 pg (28.0-32.0); Mean Corpuscular Volume 98.7 fL (80.0-100.0); Monocytes # (auto) 1.1 10 ^3/uL (0-1.3); Monocytes % (auto) 7.7 % (0.0-12.0); Neutrophils # (auto) 11.6 10 ^3/uL (1.6-8.6); Neutrophils % (auto) 79.4 % (37.0-80.0); Platelet Count (auto) 297 10^3/uL (140-450); Red Blood Cells 5.23 10^6/uL (4.5-5.90); White Blood Cell 14.6 10^3/uL (4.4-10.8)
[2025-01-26 06:14] LABS: Anion Gap 8 (5-15); Carbon Dioxide 24 mmol/L (20-31)
[2025-01-26 06:19] LABS: BUN/Creatinine Ratio 21.5 (10.0-20.0)
[2025-01-26 06:21] LABS: Blood Urea Nitrogen 35 mg/dL (9-23); Glucose 125 mg/dL (74-106); Sodium 135 mmol/L (136-145)
[2025-01-26] MEDS: PANTOPRAZOLE 40 MG TAB PO ONE (11:01)
[2025-01-26] MEDS: ALBUTEROL SULF 2.5 MG/0.5ML(0.5%) NEB SOLN ONE (11:47)
[2025-01-26] MEDS: ALBUTEROL SULF 2.5 MG/0.5ML(0.5%) NEB SOLN NEB SCH (11:48)
--- NOTE | 2025-01-26 15:02 | DVHPNRES ---
Progress Note Date Seen: Jan 26, 2025 Resident Creating Document: NIKHIL WEBSTER RESIDENT Has the PT tested + for MRSA If YES, has PT been informed?: No Medical Necessity Reason Pt with a Central, PICC or Fol: No Subjective Review of Systems This is a 89-year-old male with past medical history of hypertension, CHF, type 2 diabetes mellitus, dyslipidemia who presented to the ED transferred from [facility] due to shortness of breath for the past three days before coming to the hospital. Upon arrival to the ED, patient was desaturating requiring oxygen through nasal cannula currently at 3 L of oxygen. [place] [address], creatinine 1.80, BUN 39 and troponins were negative. BNP was slightly elevated at 212. Initial chest x-ray showed bilateral patchy infiltrates on bilateral lungs likely due to atypical pneumonia. We ordered COVID Lisette antigen test and influenza a and B. patient was started on IV azithromycin and ceftriaxone and patient was admitted for further assessment and management of possible atypical pneumonia. ROS Constitutional: Denies weight loss, fever and chills. HEENT: Denies changes in vision and hearing. Respiratory: Reports mild shortness of breath and mild cough. Cardiovascular: Denies chest discomfort or palpitations GI: Denies abdominal pain, nausea, vomiting and diarrhea. : Denies dysuria and urinary frequency. Musculoskeletal: Denies myalgias and joint pain Skin: Denies rash and pruritus. Neurological: Denies dizziness, headache, vision or hearing problems Patient seen and examined at bedside. PATIENT CONTINUED TO BE ON 2 L OXYGEN VIA NASAL CANNULA PATIENT COMPLAINING OF MILD SHORTNESS OF BREATH. DENIED CHEST PAIN, ABDOMINAL PAIN, FEVER, CHILLS, ANY OTHER SYMPTOMS AT THIS POINT. Objective vital signs Vital Sign Date Time Temp Pulse Resp B/P (MAP) Pulse Ox O2 Delivery O2 Flow Rate FiO2 01/26/25 13:00 97.4 97 18 100/55 (70) 92 97.4 01/26/25 11:52 Nasal Cannula* 2 28 Total Intake and Output 01/25/25 01/25/25 01/26/25 15:00 23:00 07:00 Intake Total 562 ml 950 ml 175 ml Output Total 475 ml Balance 562 ml 950 ml -300 ml medications Current Medications Medications Dose Ordered Sig/Reggie Route Start Time Stop Time Status Last Admin Dose Admin Ceftriaxone Sodium 50 ml @ 100 mls/hr DAILY@09 IV 01/25/25 09:00 01/26/25 09:34 100 MLS/HR Nifedipine 30 mg DAILY PO 01/25/25 10:00 01/26/25 09:35 30 MG Atorvastatin Calcium 20 mg HS PO 01/25/25 22:00 01/25/25 21:24 20 MG Enoxaparin Sodium 40 mg DAILY SC 01/25/25 10:00 01/26/25 09:35 40 MG Acetaminophen/ Hydrocodone Bitart 1 tab Q4HP PRN PO 01/25/25 03:30 01/26/25 01:07 1 TAB Ondansetron HCl 4 mg Q4HP PRN IV 01/25/25 03:30 Acetaminophen 650 mg Q6HP PRN PO 01/25/25 03:30 01/25/25 21:38 650 MG Oseltamivir Phosphate 30 mg BID PO 01/25/25 10:00 01/30/25 09:59 01/26/25 09:35 30 MG Pantoprazole Sodium 40 mg DAILY@0600 PO 01/27/25 06:00 Albuterol 2.5 mg Q6HR NEB 01/26/25 12:00 01/26/25 11:48 2.5 MG Azithromycin 250 mg DAILY PO 01/27/25 10:00 01/30/25 09:59 Examination General Appearance: Cooperative. Well developed. Well nourished. NAD Head Exam: Normal inspection Neck Exam: Normal inspection. Non-tender. Normal alignment Pulmonary/Respiratory: Chest non-tender. Crackles over bilateral lung face. Cardiovascular/Chest: Regular rate and rhythm. No murmurs. No JVD. Peripheral Pulses: 2+ Radial (R). 2+ Radial (L). 2+ Pedal (R). 2+ Pedal (L) Abdominal Exam: Normal bowel sounds. Soft. Nontender. No hepatospenomegaly. No masses Ankle Exam: Negative ankle edema Lower extremities: Negative lower extremity edema Neuro/Mental Status: A&O x4. Coherent Thoughts/Psych: Normal thought pattern. Appropriate mood and affect. Good judgement and insight Appearance: In no acute distress Skin Exam: Normal inspection. Normal color. Warm. 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 -Echocardiogram LVEF 45% -start IV ceftriaxone and p.o. azithromycin -ordered COVID and influenza a and B screening -ordered sputum cultures -continue current management and monitor saturation closely -Hold ACES or ARBS right now due to HILLARY -incentive spirometry Acute HF MR EF -Lasix 20 mg IV one dose. HILLARY on CKD stage IIIB -Iv fluids 75cc/hr, monitor closely and stop today at 5:00PM due to risk of exacerbate HF -Hold ACES and ARBS for now -Stop furosemide at this point -Monitor kidey function Primary hypertension -continue nifedipine 30 mg daily -Monitor BP Type 2 diabetes mellitus HGB A1c 6.2%. -blood glucose on normal levels at this time -no meds required at this time. -monitor blood glucose closely Dyslipidemia -start atorvastatin 20 mg daily Continue current management with IV antibiotic ceftriaxone and p.o. azithromycin. Continue use of incentive spirometry. Physical therapy evaluation. Goals of care discussed with the patient at bedside for > 25min, Plan discussed with Dr. Hall Plan discussed with: Patient, Other My Orders My Orders Orders - NIKHIL WEBSTER Procedure Category Date Status Time Blood Culture CHRISTINA 01/26/25 In Process 09:31 Pantoprazole Tablet PHA 01/27/25 In Process (Protonix Tablet) 06:00 Albuterol Medneb PHA 01/26/25 In Process (Ventolin Medneb) 12:00 Incentive Spirometry ORDERS 01/26/25 Transmitted 09:38 Pt Request For Service PT 01/26/25 Logged 09:38 Date of Service: Jan 26, 2025 Billing Provider: SWETHA HALL MD Common Visit Codes: [id number] INP/OBS CARE(HIGH) NIKHIL WEBSTER RESIDENT Jan 26, 2025 15:02 SWETHA HALL MD Jan 27, 2025 09:38
[2025-01-26] MEDS: FUROSEMIDE 20 MG/2 ML VIAL IV ONE (15:15)
[2025-01-27] VITALS (14 sets, daily range): BP systolic 118–138; BP diastolic 50–65; PULSE 64–85; RESP 16–90; TEMP 97.4–98.6; O2SAT 90–97
[2025-01-27] MEDS: ALBUTEROL SULF 2.5 MG/0.5ML(0.5%) NEB SOLN ONE (05:41)
[2025-01-27] MEDS: PANTOPRAZOLE 40 MG TAB PO SCH (06:11)
[2025-01-27 08:55] LABS: Basophils # (auto) 0 10 ^3/uL (0-0.2); Eosinophils # (auto) 0.2 10 ^3/uL (0-0.8); Mean Corpuscular Hemoglobin 32.1 pg (28.0-32.0); Neutrophils # (auto) 8.6 10 ^3/uL (1.6-8.6)
[2025-01-27 08:56] LABS: Basophils % (auto) 0.2 % (0.0-2.0); Eosinophils % (auto) 1.7 % (0.0-7.0); Hemoglobin 17.7 g/dL (13.5-17.5); Lymphocytes # (auto) 2.7 10 ^3/uL (0.4-5.4); Lymphocytes % (auto) 21.7 % (10.0-50.0); Mean Corpuscular Hgb Conc. 32.8 g/dL (32.0-36.0); Mean Corpuscular Volume 97.8 fL (80.0-100.0); Monocytes % (auto) 7.9 % (0.0-12.0); Neutrophils % (auto) 68.5 % (37.0-80.0); Platelet Count (auto) 309 10^3/uL (140-450); Red Blood Cells 5.52 10^6/uL (4.5-5.90); White Blood Cell 12.6 10^3/uL (4.4-10.8)
[2025-01-27 09:05] LABS: Chloride 103 mmol/L (98-107); Potassium 4.8 mmol/L (3.5-5.1); Sodium 136 mmol/L (136-145)
[2025-01-27 09:06] LABS: Anion Gap 6 (5-15); Calcium 9.4 mg/dL (8.7-10.4); Carbon Dioxide 27 mmol/L (20-31)
[2025-01-27 09:11] LABS: BUN/Creatinine Ratio 20.9 (10.0-20.0)
[2025-01-27 09:19] LABS: Blood Urea Nitrogen 38 mg/dL (9-23); Glucose 107 mg/dL (74-106)
[2025-01-27] MEDS ORDERED: AZITHROMYCIN 250 MG TAB PO SCH (10:00)
--- NOTE | 2025-01-27 10:00 | DVH ---
EXAM: XR Chest, 1 View CLINICAL INDICATION: chf TECHNIQUE: Frontal view of the chest. COMPARISON: XY CHEST XRAY 1 VIEW on DOS: 01/25/25, XY CHEST PORTABLE on DOS: 06/02/23, XY CHEST DAVID BLE on DOS: 05/30/23 FINDINGS: LUNGS AND PLEURAL SPACES: Pulmonary congestion and edema. Pneumonia cannot be excluded. No pneumot horax. HEART: Unremarkable. No cardiomegaly. MEDIASTINUM: Unremarkable. Normal mediastinal contour. BONES/JOINTS: Unremarkable. No acute fracture. OTHER FINDINGS: . IMPRESSION: Pulmonary congestion and edema. Pneumonia cannot be excluded.
[2025-01-27] MEDS: DOXYCYCLINE 100 MG TAB/CAP PO SCH (10:16)
--- NOTE | 2025-01-27 14:00 | DVHPNRES ---
Progress Note Date Seen: Jan 27, 2025 Resident Creating Document: CAITLYN CHAPARRO RESIDENT Has the PT tested + for MRSA If YES, has PT been informed?: No Medical Necessity Reason Pt with a Central, PICC or Fol: No Subjective Review of Systems This is a 89-year-old male with past medical history of hypertension, CHF, type 2 diabetes mellitus, dyslipidemia who presented to the ED transferred from [facility] due to shortness of breath for the past three days before coming to the hospital. Upon arrival to the ED, patient was desaturating requiring oxygen through nasal cannula currently at 3 L of oxygen. [place] [address], creatinine 1.80, BUN 39 and troponins were negative. BNP was slightly elevated at 212. Initial chest x-ray showed bilateral patchy infiltrates on bilateral lungs likely due to atypical pneumonia. We ordered COVID Lisette antigen test and influenza a and B. patient was started on IV azithromycin and ceftriaxone and patient was admitted for further assessment and management of possible atypical pneumonia. Patient seen and examined at bedside. Patient is currently on 2 L of oxygen through nasal cannula. We will try titrating oxygen down to room air but patient started desaturating at 88%. We will continue IV antibiotics at this time and titrate down tomorrow oxygen as well. If patient keeps desaturating we will do an ABG on room air to see if patient has qualify for home oxygen. Patient reports very mild shortness of breath. Otherwise patient is stable overall and has no complaints at this time. ROS Constitutional: Denies weight loss, fever and chills. HEENT: Denies changes in vision and hearing. Respiratory: Denies shortness of breath and cough Cardiovascular: Denies chest discomfort or palpitations GI: Denies abdominal pain, nausea, vomiting and diarrhea. : Denies dysuria and urinary frequency. Musculoskeletal: Denies myalgias and joint pain Skin: Denies rash and pruritus. Neurological: Denies dizziness, headache, vision or hearing problems Objective vital signs Vital Sign Date Time Temp Pulse Resp B/P (MAP) Pulse Ox O2 Delivery O2 Flow Rate FiO2 01/27/25 12:01 74 16 96 01/27/25 11:55 Nasal Cannula 2.0 01/27/25 11:55 28 01/27/25 10:14 132/57 01/27/25 05:00 98.4 98.4 Total Intake and Output 01/26/25 01/26/25 01/27/25 15:00 23:00 07:00 Intake Total 300 ml 700 ml Output Total 950 ml Balance 300 ml -250 ml medications Current Medications Medications Dose Ordered Sig/Reggie Route Start Time Stop Time Status Last Admin Dose Admin Ceftriaxone Sodium 50 ml @ 100 mls/hr DAILY@09 IV 01/25/25 09:00 01/27/25 10:16 100 MLS/HR Nifedipine 30 mg DAILY PO 01/25/25 10:00 01/27/25 10:14 30 MG Atorvastatin Calcium 20 mg HS PO 01/25/25 22:00 01/26/25 21:06 20 MG Acetaminophen/ Hydrocodone Bitart 1 tab Q4HP PRN PO 01/25/25 03:30 01/27/25 01:20 1 TAB Ondansetron HCl 4 mg Q4HP PRN IV 01/25/25 03:30 Acetaminophen 650 mg Q6HP PRN PO 01/25/25 03:30 01/25/25 21:38 650 MG Pantoprazole Sodium 40 mg DAILY@0600 PO 01/27/25 06:00 01/27/25 06:11 40 MG Albuterol 2.5 mg Q6HR NEB 01/26/25 12:00 01/27/25 11:55 2.5 MG Doxycycline Monohydrate 100 mg Q12HR PO 01/27/25 10:00 01/27/25 10:16 100 MG Enoxaparin Sodium 30 mg DAILY SC 01/28/25 10:00 Examination Physical Examination General: Patient alert and oriented in person, place and time. Patient following commands. HEENT: Normocephalic, atraumatic, moist mucous membranes Respiratory/pulmonary: There are crackles on bilateral lung lafleur, no wheezes at this time. The patient is requiring 2 L of oxygen through nasal cannula Cardiovascular: Normal heart sounds S1 and S2 with no associated murmurs Abdomen: Abdomen nondistended, there is no pain to palpation in any of the abdominal quadrants, no palpable masses. Extremities: There is no peripheral edema present at the lower extremities. Peripheral Pulses: 3+ Radial (R). 3+ Radial (L). 3+ Dorsalis pedis (R). 3+ Dorsalis pedis(L) Skin: No rashes or pruritus, there is no sacral edema present at this time. Neurological: Intact cranial nerves with no focal neurologic deficits laboratory and microbiology Laboratory Tests 01/27/25 08:35 Test 01/27/25 08:35 Range/Units Serum Glucose 107 H 74-106 mg/dL Microbiology Date/Time Source Procedure Growth Status 01/26/25 10:21 Blood Blood Culture - Preliminary NO GROWTH AFTER 24 HOURS OF INCUBATION. 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 -Echocardiogram LVEF 45% -Continue IV ceftriaxone -Stop azithromycin. Start doxycycline 100 mg BID -ordered COVID and influenza a and B screening, came back both negative -ordered sputum cultures -continue current management and monitor saturation closely -Hold ACES or ARBS right now due to H[place] HILL[place] on CKD stage IIIB -Cr1.80, bun 39, GFR 36 -Stop iv fluids -Hold ACES and ARBS for now -Stop furosemide at this point -Monitor kidey function Primary hypertension -continue nifedipine 30 mg daily -Monitor BP Type 2 diabetes mellitus -ordered hemoglobin A1c, came back at 6.2% prediabetes range -blood glucose on normal levels at this time -no meds required at this time. -monitor blood glucose closely Dyslipidemia -Continue atorvastatin 20 mg daily Goals of care discussed with the patient at bedside for > 25min, Plan discussed with Dr. Morgan Plan discussed with: Patient My Orders My Orders Orders - CAITLYN CHAPARRO Procedure Category Date Status Time Doxycycline Tablet PHA 01/27/25 In Process (Vibramycin Tablet) 10:00 Urinalysis LAB 01/27/25 Logged 12:42 Communication Order ORDERS 01/27/25 Transmitted 12:42 Date of Service: Jan 27, 2025 Billing Provider: SWETHA MORGAN MD Common Visit Codes: [id number] INP/OBS CARE(HIGH) CAITLYN CHAPARRO RESIDENT Jan 27, 2025 14:00 SWETHA MORGAN MD Jan 28, 2025 18:13
[2025-01-27] MEDS ORDERED: ALBUTEROL SULF 2.5 MG/0.5ML(0.5%) NEB SOLN ONE (18:01)
[2025-01-27 22:24] LABS: Urine Bacteria None Seen /hpf (None Seen)
[2025-01-27 22:34] LABS: Urine Blood TRACE /uL (Negative); Urine Clarity Clear (Clear); Urine Color Light-Yellow (Yellow); Urine Protein, UAD TRACE (Negative); Urine Specific Gravity 1.017 (1.001-1.035); Urine Squamous Epithelial Cell FEW /hpf (<5); Urine Urobilinogen Normal (Negative); Urine WBC 3 /HPF (0-3); Urine pH 5.5 (5.0-9.0)
[2025-01-28] VITALS (10 sets, daily range): BP systolic 118–128; BP diastolic 46–77; PULSE 72–80; RESP 14–19; TEMP 36.2; O2SAT 85–99
[2025-01-28 05:17] LABS: Basophils # (auto) 0 10 ^3/uL (0-0.2); Basophils % (auto) 0.2 % (0.0-2.0); Eosinophils # (auto) 0.3 10 ^3/uL (0-0.8); Eosinophils % (auto) 2.5 % (0.0-7.0); Hematocrit 50.9 % (41.0-53.0); Hemoglobin 17.1 g/dL (13.5-17.5); Lymphocytes # (auto) 1.5 10 ^3/uL (0.4-5.4); Lymphocytes % (auto) 13.7 % (10.0-50.0); Mean Corpuscular Hemoglobin 32.4 pg (28.0-32.0); Mean Corpuscular Hgb Conc. 33.6 g/dL (32.0-36.0); Mean Corpuscular Volume 96.4 fL (80.0-100.0); Monocytes # (auto) 0.9 10 ^3/uL (0-1.3); Monocytes % (auto) 8.1 % (0.0-12.0); Neutrophils # (auto) 8.5 10 ^3/uL (1.6-8.6); Neutrophils % (auto) 75.5 % (37.0-80.0); Nucleated Red Blood Cells % 0.2 %; Platelet Count (auto) 305 10^3/uL (140-450); Red Blood Cells 5.28 10^6/uL (4.5-5.90); Red Cell Distribution Width 13.8 % (11.8-14.3); White Blood Cell 11.2 10^3/uL (4.4-10.8)
[2025-01-28 05:28] LABS: Chloride 103 mmol/L (98-107); Potassium 4.5 mmol/L (3.5-5.1); Sodium 138 mmol/L (136-145)
[2025-01-28 05:30] LABS: Anion Gap 8 (5-15); Calcium 9.1 mg/dL (8.7-10.4); Carbon Dioxide 27 mmol/L (20-31)
[2025-01-28 05:35] LABS: BUN/Creatinine Ratio 23.5 (10.0-20.0)
[2025-01-28 05:37] LABS: Blood Urea Nitrogen 43 mg/dL (9-23); Glucose 112 mg/dL (74-106)
[2025-01-28] MEDS: ENOXAPARIN SOD 30 MG/0.3 ML SYRINGE SC SCH (08:28)
[2025-01-28 10:23] LABS: Base Excess 0.9 mmol/L (-2.0-3.0)
[2025-01-28] MEDS ORDERED: DOXY100C79 PO ×2 (12:19→15:30)
--- NOTE | 2025-01-28 12:24 | DVHDSRES ---
Discharge Summary Date of Admission Resident Creating Document: CAITLYN CHAPARRO RESIDENT Jan 24, 2025 at 21:55 Date of Discharge: Jan 28, 2025 Admitting Diagnosis Acute hypoxic respiratory failure Wounds: No wounds present at this time. Labs/Diagnostic Data: Laboratory Results Test 01/28/25 10:19 01/28/25 04:33 01/27/25 22:00 01/27/25 08:35 Blood Gas Specimen Type Arterial Blood Gas Sample Site Right radial Blood Gas Patient Temperature 37.0 Arterial Blood Date Drawn [id number] Arterial Blood pH 7.421 (7.350-7.450) Arterial Blood Partial Pressure CO2 39.8 mmHg (35.0-48.0) Arterial Blood Partial Pressure O2 54.7 mmHg (83.0-108.0) Arterial Blood HCO3 25.3 mmol/L (21.0-28.0) Arterial Blood Oxygen Saturation 86.7 % (94.0-98.0) Arterial Blood Base Excess 0.9 mmol/L (-2.0-3.0) Arterial Blood Oxyhemoglobin 85.7 % (94.0-98.0) Arterial Blood Carboxyhemoglobin 0.7 % (0.5-1.5) Arterial Blood Methemoglobin 0.5 % (0.0-1.5) Tyrell Test Yes Blood Gas Total Hemoglobin 17.90 g/dL (13.5-17.5) Blood Gas Modality Room air FiO2 % 21.0 Blood Gas Critical Value Read Back Yes Blood Gas Notified Whom Dr. enciso Blood Gas Notified Time [id number] Blood Gas Notified By Fam bess, brionna White Blood Count 11.2 10^3/uL (4.4-10.8) Red Blood Count 5.28 10^6/uL (4.5-5.90) Hemoglobin 17.1 g/dL (13.5-17.5) Hematocrit 50.9 % (41.0-53.0) Mean Corpuscular Volume 96.4 fL (80.0-100.0) Mean Corpuscular Hemoglobin 32.4 pg (28.0-32.0) Mean Corpuscular Hemoglobin Concent 33.6 g/dL (32.0-36.0) Red Cell Distribution Width 13.8 % (11.8-14.3) Platelet Count 305 10^3/uL (140-450) Mean Platelet Volume 8.5 fL (6.9-10.8) Neutrophils (%) (Auto) 75.5 % (37.0-80.0) Lymphocytes (%) (Auto) 13.7 % (10.0-50.0) Monocytes (%) (Auto) 8.1 % (0.0-12.0) Eosinophils (%) (Auto) 2.5 % (0.0-7.0) Basophils (%) (Auto) 0.2 % (0.0-2.0) Neutrophils # (Auto) 8.5 10 ^3/uL (1.6-8.6) Lymphocytes # (Auto) 1.5 10 ^3/uL (0.4-5.4) Monocytes # (Auto) 0.9 10 ^3/uL (0-1.3) Eosinophils # (Auto) 0.3 10 ^3/uL (0-0.8) Basophils # (Auto) 0 10 ^3/uL (0-0.2) Nucleated Red Blood Cells 0.2 % Sodium Level 138 mmol/L (136-145) Potassium Level 4.5 mmol/L (3.5-5.1) Chloride Level 103 mmol/L (98-107) Carbon Dioxide Level 27 mmol/L (20-31) Anion Gap 8 (5-15) Blood Urea Nitrogen 43 mg/dL (9-23) Creatinine 1.83 mg/dL (0.700-1.30) Glomerular Filtration Rate Calc 35 mL/min (>90) BUN/Creatinine Ratio 23.5 (10.0-20.0) Serum Glucose 112 mg/dL (74-106) Calcium Level 9.1 mg/dL (8.7-10.4) Urine Color Light-yellow (Yellow) Urine Clarity Clear (Clear) Urine pH 5.5 (5.0-9.0) Urine Specific Continental 1.017 (1.001-1.035) Urine Protein Trace (Negative) Urine Ketones Negative (Negative) Urine Blood Trace /uL (Negative) Urine Nitrite Negative (Negative) Urine Bilirubin Negative (Negative) Urine Urobilinogen Normal mg/dL (Negative) Urine Leukocyte Esterase Negative /uL (Negative) Urine RBC 1 /hpf (0 - 3) Urine Microscopic WBC 3 /HPF (0-3) Urine Squamous Epithelial Cells Few /hpf (<5) Urine Bacteria None seen /hpf (None Seen) Urine Glucose 4+ mg/dL (Normal) Thyroid Stimulating Hormone (TSH) 0.99 uIU/mL (0.55-4.78) Test 01/26/25 04:58 01/25/25 01:05 Influenza Type A Antigen Negative (Negative) Influenza Type B Antigen Negative (Negative) SARS-CoV-2 Antigen (Rapid) Negative (NEGATIVE) Hemoglobin A1c 6.2 % A1C (<5.7) Total Bilirubin 0.3 mg/dL (0.2-1.0) Aspartate Amino Transferase (AST) 17 U/L (13-40) Alanine Aminotransferase (ALT) 17 U/L (7-40) Alkaline Phosphatase 70 U/L (46-116) Troponin I High Sensitivity 19 ng/L (</=54) B-Type Natriuretic Peptide 212.42 pg/mL (0-100) Total Protein 6.7 g/dL (5.7-8.2) Albumin 3.8 g/dL (3.2-4.8) Other Laboratory Tests 01/28/25 04:33 Brief Hx & Hospital Course: This is a 89-year-old male with past medical history of hypertension, CHF, type 2 diabetes mellitus, dyslipidemia who presented to the ED transferred from [facility] due to shortness of breath for the past three days before coming to the hospital. Upon arrival to the ED, patient was desaturating requiring oxygen through nasal cannula currently at 3 L of oxygen. [place] [address], creatinine 1.80, BUN 39 and troponins were negative. BNP was slightly elevated at 212. Initial chest x-ray showed bilateral patchy infiltrates on bilateral lungs likely due to atypical pneumonia. We ordered COVID Lisette antigen test and influenza a and B. patient was started on IV azithromycin and ceftriaxone. Afterwards patient was switched to IV doxycycline and ceftriaxone. Patient has been stable overall on 2 L of oxygen through nasal cannula through all hospitalization stay. Today, we titrated down oxygen to room air and patient desaturated to 86%. We performed an ABG on room air to determine if the patient needs home oxygen and PaO2 in the ABG was 54.7. Patient will be discharged home with home oxygen on 2 L of oxygen through nasal cannula continuously. We will also prescribe doxycycline 100 mg b.i.d. for three additional days to complete seven days of treatment. Patient agrees with the plan. ROS Constitutional: Denies weight loss, fever and chills. HEENT: Denies changes in vision and hearing. Respiratory: Denies shortness of breath and cough Cardiovascular: Denies chest discomfort or palpitations GI: Denies abdominal pain, nausea, vomiting and diarrhea. : Denies dysuria and urinary frequency. Musculoskeletal: Denies myalgias and joint pain Skin: Denies rash and pruritus. Neurological: Denies dizziness, headache, vision or hearing problems Physical Examination General: Patient alert and oriented in person, place and time. Patient following commands. HEENT: Normocephalic, atraumatic, moist mucous membranes Respiratory/pulmonary: There are mild crackles on bilateral lung lafleur but improved compare to admission. no wheezes at this time. The patient is requiring 2 L of oxygen through nasal cannula Cardiovascular: Normal heart sounds S1 and S2 with no associated murmurs Abdomen: Abdomen nondistended, there is no pain to palpation in any of the abdominal quadrants, no palpable masses. Extremities: There is no peripheral edema present at the lower extremities. Peripheral Pulses: 3+ Radial (R). 3+ Radial (L). 3+ Dorsalis pedis (R). 3+ Dorsalis pedis(L) Skin: No rashes or pruritus, there is no sacral edema present at this time. Neurological: Intact cranial nerves with no focal neurologic deficits Consults/Reason for consult N/A Operations or Procedures EXAM: XY CHEST XRAY 1 VIEW Indication: Pain; PNA Technique: Single frontal view of the chest was obtained Comparison: XY CHEST PORTABLE on DOS: 06/02/23, XY CHEST PORTABLE on DOS: 05/30/23 FINDINGS: Lines and Tubes: None Lungs: Diffuse interstitial opacities Pleura: No effusion. No pneumothorax. Cardiomediastinal contours: Unremarkable Bones: No acute osseous abnormality. IMPRESSION: Diffuse interstitial opacities suggestive of atypical infection or pulmonary edema. EXAM: XR Chest, 1 View CLINICAL INDICATION: chf TECHNIQUE: Frontal view of the chest. COMPARISON: XY CHEST XRAY 1 VIEW on DOS: 01/25/25, XY CHEST PORTABLE on DOS: 06/02/23, XY CHEST PORTABLE on DOS: 05/30/23 FINDINGS: LUNGS AND PLEURAL SPACES: Pulmonary congestion and edema. Pneumonia cannot be excluded. No pneumothorax. HEART: Unremarkable. No cardiomegaly. MEDIASTINUM: Unremarkable. Normal mediastinal contour. BONES/JOINTS: Unremarkable. No acute fracture. OTHER FINDINGS: . IMPRESSION: Pulmonary congestion and edema. Pneumonia cannot be excluded. 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 Patient was counseled about treatment plan, medications, possible side effects, patientverbalized understanding. All questions were answered to the best of my ability. 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
== END 2025-01-28 19:50 | disposition home or self-care (01) | DRG 177 ==
LOC: CENTRAL 01-24 21:55
PROVIDERS: ADMIT Internal Medicine; ATTEND Internal Medicine
DX: J15.69 Pneumonia due to other Gram-negative bacteria (principal); I50.23 Acute on chronic systolic (congestive) heart failure; J96.01 Acute respiratory failure with hypoxia; N17.9 Acute kidney failure, unspecified; I13.0 Hypertensive heart and chronic kidney disease with heart failure and stage 1 through stage 4 chronic kidney disease, or unspecified chronic kidney disease; J15.9 Unspecified bacterial pneumonia; J10.08 Influenza due to other identified influenza virus with other specified pneumonia; J12.9 Viral pneumonia, unspecified; Z20.822 Contact with and (suspected) exposure to COVID-19; E78.5 Hyperlipidemia, unspecified; N18.32 Chronic kidney disease, stage 3b; E11.22 Type 2 diabetes mellitus with diabetic chronic kidney disease; Z90.49 Acquired absence of other specified parts of digestive tract; Z79.899 Other long term (current) drug therapy
CPT/HCPCS: 36415; 36600; 71045; 80048; 80053; 81001; 82805; 83036; 83880; 84443; 84484; 85025; 87040; 87081; 87426; 87804; 93306; 94640; 97163; G0378; G9035

== ENCOUNTER → 2025-02-07 | Outpatient (CLI) | payer OTHER, MEDICAID ==
[~2025-02-07] MED LIST changes: +ALBU108A5 PO; +DOXY100C79 PO; +EMPA1TAB3 PO; +FLUT1AER17 INH; +FURO20TA4 PO; +GLIP5TAB21 PO; -LEVO750T40 PO; +LINA5TAB PO; +NIFE1TAB36; -PRED20TA2 PO
[2025-02-07 11:46] LABS: Basophils # (auto) 0 10 ^3/uL (0-0.2); Basophils % (auto) 0.3 % (0.0-2.0); Eosinophils # (auto) 0.2 10 ^3/uL (0-0.8); Hemoglobin 17.4 g/dL (13.5-17.5); Lymphocytes # (auto) 2.4 10 ^3/uL (0.4-5.4); Lymphocytes % (auto) 23.5 % (10.0-50.0); Mean Corpuscular Hemoglobin 32.5 pg (28.0-32.0); Mean Corpuscular Hgb Conc. 33.4 g/dL (32.0-36.0); Mean Corpuscular Volume 97.3 fL (80.0-100.0); Monocytes # (auto) 0.7 10 ^3/uL (0-1.3); Monocytes % (auto) 6.5 % (0.0-12.0); Neutrophils # (auto) 6.8 10 ^3/uL (1.6-8.6); Neutrophils % (auto) 67.7 % (37.0-80.0); Nucleated Red Blood Cells % 0.3 %; Platelet Count (auto) 237 10^3/uL (140-450); Red Blood Cells 5.34 10^6/uL (4.5-5.90); Red Cell Distribution Width 13.7 % (11.8-14.3)
[2025-02-07 12:31] LABS: Alanine Aminotransferase 30 U/L (7-40); Albumin 4.1 g/dL (3.2-4.8); Alkaline Phosphatase 87 U/L (46-116); Anion Gap 6 (5-15); Aspartate Aminotransferase 28 U/L (13-40); BUN/Creatinine Ratio 15.3 (10.0-20.0); Calcium 9.4 mg/dL (8.7-10.4); Chloride 103 mmol/L (98-107); Sodium 141 mmol/L (136-145)
[2025-02-07 12:32] LABS: Total Protein 7.4 g/dL (5.7-8.2)
[2025-02-07 12:33] LABS: Bilirubin, Total 0.4 mg/dL (0.2-1.0); Blood Urea Nitrogen 24 mg/dL (9-23); Carbon Dioxide 32 mmol/L (20-31); Glucose 162 mg/dL (74-106)
== END | disposition home or self-care (01) ==
LOC: LAB 11:05
PROVIDERS: ATTEND Internal Medicine
DX: I13.0 Hypertensive heart and chronic kidney disease with heart failure and stage 1 through stage 4 chronic kidney disease, or unspecified chronic kidney disease (principal); I50.9 Heart failure, unspecified; N18.32 Chronic kidney disease, stage 3b
CPT/HCPCS: 36415; 80053; 83880; 85025

== ENCOUNTER → 2025-04-17 | Outpatient (CLI) | payer OTHER, MEDICAID ==
[2025-04-17 09:46] LABS: Chloride 106 mmol/L (98-107); Potassium 5.0 mmol/L (3.5-5.1); Sodium 141 mmol/L (136-145)
[2025-04-17 09:47] LABS: Anion Gap 8 (5-15); Calcium 9.3 mg/dL (8.7-10.4); Carbon Dioxide 27 mmol/L (20-31)
[2025-04-17 09:52] LABS: BUN/Creatinine Ratio 11.5 (10.0-20.0); Blood Urea Nitrogen 21 mg/dL (9-23)
[2025-04-17 09:54] LABS: Glucose 112 mg/dL (74-106)
== END | disposition home or self-care (01) ==
LOC: LAB 08:57
PROVIDERS: ATTEND Internal Medicine
DX: I50.22 Chronic systolic (congestive) heart failure (principal)
CPT/HCPCS: 36415; 80048; 83880

== ENCOUNTER 2025-07-09 09:22 | Outpatient (CLI) | payer OTHER, MEDICAID ==
[2025-07-09 11:14] LABS: Chloride 104 mmol/L (98-107); Potassium 5.0 mmol/L (3.5-5.1); Sodium 140 mmol/L (136-145)
[2025-07-09 11:16] LABS: Anion Gap 11 (5-15); Calcium 8.7 mg/dL (8.7-10.4); Carbon Dioxide 25 mmol/L (20-31)
[2025-07-09 11:23] LABS: BUN/Creatinine Ratio 11.0 (10.0-20.0); Blood Urea Nitrogen 21 mg/dL (9-23)
[2025-07-09 11:25] LABS: Glucose 122 mg/dL (74-106)
== END 2025-07-09 17:00 | disposition home or self-care (01) ==
LOC: LAB 09:22
PROVIDERS: ATTEND Internal Medicine
DX: E11.22 Type 2 diabetes mellitus with diabetic chronic kidney disease (principal); N18.9 Chronic kidney disease, unspecified
CPT/HCPCS: 36415; 80048

== ENCOUNTER 2025-09-16 09:18 | Outpatient (CLI) | payer OTHER, MEDICAID ==
[2025-09-16 10:55] LABS: Anion Gap 9 (5-15); Carbon Dioxide 26 mmol/L (20-31); Potassium 5.0 mmol/L (3.5-5.1); Sodium 145 mmol/L (136-145)
[2025-09-16 10:56] LABS: Calcium 9.3 mg/dL (8.7-10.4)
[2025-09-16 11:01] LABS: BUN/Creatinine Ratio 18.2 (10.0-20.0)
[2025-09-16 11:10] LABS: Blood Urea Nitrogen 34 mg/dL (9-23); Chloride 110 mmol/L (98-107); Glucose 118 mg/dL (74-106)
== END 2025-09-16 17:00 | disposition home or self-care (01) ==
LOC: LAB 09:18
PROVIDERS: ATTEND Internal Medicine
DX: E11.22 Type 2 diabetes mellitus with diabetic chronic kidney disease (principal); N18.9 Chronic kidney disease, unspecified; J44.9 Chronic obstructive pulmonary disease, unspecified
CPT/HCPCS: 36415; 80048; 83036